=== PATIENT | female | born 1940 | race American Indian/Alaskan Native ===

== ENCOUNTER 2018-10-08 18:50 | Emergency (ER) | payer MEDICARE ==
[2018-10-08 19:24] VITALS: BP 139/66
--- NOTE | 2018-10-08 21:25 | XRay Report ---
PROCEDURE: XR ANKLE 3+V RT TECHNIQUE: Frontal, lateral, mortise views right ankle HISTORY: right ankle pain COMPARISONS: None FINDINGS: There is no evidence of fracture or subluxation. The mortise joint is maintained. There is soft tissue swelling along the lateral aspect of the ankle. IMPRESSION: 1. Soft tissue swelling without evidence of fracture or subluxation. This document is electronically signed by Michaela Gordillo MD., October 08 2018 09:23:07 PM ET
[2018-10-08] MEDS ORDERED: ASPIRIN PO ONE (21:57)
--- NOTE | 2018-10-08 22:02 | Emergency Department Report ---
HPI - General Chief Complaint: Fall Time Seen by Provider: 10/08/18 21:49 - HPI HPI: Room 3 The patient is a 77-year-old female presenting with a chief complaint of right ankle pain and chest pain. This morning at approximately 11:30 the patient states she fell down approximate 7 stairs injuring her right ankle. Patient denies loss of consciousness. When patient arrived to the ED family states the patient got out of the car stumbled backwards striking a trash can and then began complaining of left-sided chest pain. Patient denies any direct trauma to her chest. Patient admits to some shortness of breath but denies nausea/vomiting or diaphoresis. Patient describes her pain as a "hurt." The patient gives her chest pain score of 5/10. The patient states her last stress test occurred over 5 years ago and she has never had a cardiac catheterization Location: Right ankle, left chest Duration: Onset at 11:30 this morning Quality: "Hurt" Severity:5/10 Modifying factors: [see above] Context: [see above] Mode of transportation: [not driving] ED Past Medical Hx - Past Medical History Hx Diabetes: Yes Hx GERD: Yes Hx Kidney Stones: Yes Hx COPD: Yes Additional medical history: Enlarged heart, Kidney abnormality, Elevated cholesterol - Surgical History Additional Surgical History: Hysterectomy, Bladder tack x 3, Kidneystones removed by surgery - Family History Family history: no significant - Social History Smoking Status: Heavy Tobacco Smoker Substance Use Type: None - Medications Home Medications: Home Medications Medication Instructions Recorded Confirmed Last Taken Type Aspirin [Aspirin BABY CHEW TAB] 81 mg PO ONCE #100 tab.chew 09/06/14 Unknown Rx Nitroglycerin (Nf) [Nitrostat] 0.6 mg SL PRN PRN #20 tablet 09/06/14 Unknown Rx Omeprazole Magnesium [Prilosec Otc] 20 mg PO QDAY #20 tablet. 09/06/14 Unknown Rx ED Review of Systems ROS: Stated complaint: FALL/R LEG AND ANKLE PAIN Other details as noted in HPI Constitutional: denies: diaphoresis Eyes: denies: eye pain ENT: denies: throat pain Respiratory: shortness of breath Cardiovascular: chest pain Endocrine: no symptoms reported Gastrointestinal: denies: nausea, vomiting Genitourinary: denies: dysuria Musculoskeletal: arthralgia, myalgia Neurological: denies: headache Physical Exam - Physical Exam Vital Signs: Vital Signs 10/08/18 19:13 Temperature 97.5 F L Pulse Rate 67 Respiratory 18 Rate Blood Pressure 139/66 O2 Sat by Pulse 95 Oximetry Physical Exam: GENERAL: The patient is well-developed well-nourished male lying on stretcher not appearing to be in acute distress. [] HEENT: Normocephalic. Atraumatic. Extraocular motions are intact. Patient has moist mucous membranes. NECK: Supple. Trachea midline CHEST/LUNGS: Clear to auscultation. There is no respiratory distress noted. HEART/CARDIOVASCULAR: Regular. There is no tachycardia. There is no gallop rub or murmur. 2+ right DP ABDOMEN: Abdomen is soft, nontender. Patient has normal bowel sounds. There is no abdominal distention. SKIN: There is no rash. There is mild right lateral malleolus edema. There is no diaphoresis. NEURO: The patient is awake, alert, and oriented. The patient is cooperative. Normal sensation to the right foot. The patient has normal speech. Patient able to wiggle toes on the right foot. MUSCULOSKELETAL: There is tenderness and swelling to the right lateral malleolus ED Course Vital Signs 10/08/18 19:13 Temperature 97.5 F L Pulse Rate 67 Respiratory 18 Rate Blood Pressure 139/66 O2 Sat by Pulse 95 Oximetry ED Medical Decision Making - EKG Data -: EKG Interpreted by Me EKG shows normal: sinus rhythm Rate: normal - EKG Data When compared to previous EKG there are: previous EKG unavailable Interpretation: other (no ischemic changes seen) - Radiology Data Radiology results: report reviewed (right ankle x-ray), image reviewed (right ankle x-ray) interpreted by me: Right ankle x-ray-no acute fracture [facility] [address] [place] [address] XRay Report Signed Patient: SAL GRIFFITH MR#: [id number] : 1940 Acct:[id number] Age/Sex: 77 / F ADM Date: 10/08/18 Loc: ED Attending Dr: Ordering Physician: ED MD KYLIE Date of Service: 10/08/18 Procedure(s): XR ankle 3+V RT Accession Number(s): [id number] cc: ED MD KYLIE Fluoro Time In Minutes: PROCEDURE: XR ANKLE 3+V RT TECHNIQUE: Frontal, lateral, mortise views right ankle HISTORY: right ankle pain COMPARISONS: None FINDINGS: There is no evidence of fracture or subluxation. The mortise joint is maintained. There is soft tissue swelling along the lateral aspect of the ankle. IMPRESSION: 1. Soft tissue swelling without evidence of fracture or subluxation. This document is electronically signed by Tom Gordillo MD., October 08 2018 09:23:07 PM ET Transcribed By: ED Dictated By: TOM GORDILLO MD Electronically Authenticated By: TOM GORDILLO MD Signed Date/Time: 10/08/182124 DD/ 13 TD/TT: 10/08/182013 - Medical Decision Making I explained to the patient and the 2 family members present in the room I concern for her chest pain. I explained how one set of normal labs as well as unremarkable EKG does not rule out acute coronary syndrome. I urged the patient and the family to remain and be admitted to the hospital for observation. Patient verbalized understanding of increased morbidity and/or mortality should she leave the hospital AGAINST MEDICAL ADVICE still states she does not wish to be admitted to the hospital. - Differential Diagnosis ankle sprain, ankle fracture, ACS, anxiety, pericarditis, GERD Critical care attestation.: If time is entered above; I have spent that time in minutes in the direct care of this critically ill patient, excluding procedure time. ED Disposition Clinical Impression: Right ankle sprain, Acute right ankle pain, Chest pain Disposition: -07 LEFT AGAINST MED ADVICE Is pt being admited?: No Does the pt Need Aspirin: Yes Condition: Undetermined Instructions: Chest Pain (ED) Time of Disposition: 22:08 (patient leaving AMA)
[2018-10-08] MEDS ORDERED: TYLENOL ONE (22:09)
[2018-10-09] MEDS ORDERED: TYLENOL PO ONE (00:22)
== END 2018-10-08 23:00 | disposition left against medical advice (07) ==
LOC: ED 18:50
DX: S93.402A Sprain of unspecified ligament of left ankle, initial encounter (principal); R07.89 Other chest pain; W01.198A Fall on same level from slipping, tripping and stumbling with subsequent striking against other object, initial encounter; Y93.89 Activity, other specified; Y92.89 Other specified places as the place of occurrence of the external cause; Y99.8 Other external cause status
CPT/HCPCS: 93005; 93010

== ENCOUNTER 2021-07-26 18:34 | Emergency (ER) | payer MEDICARE ==
[2021-07-26] MEDS ORDERED: MORPHINE 4 MG/1 ML INJ IM ONE (18:52)
--- NOTE | 2021-07-26 18:53 | Event Note ---
ED Screening Note Date of service: 07/26/21 Time: 18:49 ED Screening Note: 80-year-old -[place] female presents to the emergency room for severe back pain that started after she had fallen today down a few steps. Patient denies hitting her head no loss of consciousness. Patient reports her pain is unbearable. She denies any urinary continent or bowel incontinent. States is very painful to stand or walk. This initial assessment/diagnostic orders/clinical plan/treatment(s) is/are subject to change based on patients health status, clinical progression and re- assessment by fellow clinical providers in the ED. Further treatment and workup at subsequent clinical providers discretion. Patient/guardian urged not to elope from the ED as their condition may be serious if not clinically assessed and managed. Initial orders include: Lumbar sacral x-ray ordered morphine 3 mg IM has been ordered.
--- NOTE | 2021-07-26 20:57 | Cat Scan Report ---
CT LUMBAR SPINE: 07/26/2021 INDICATION / CLINICAL INFORMATION: fall. COMPARISON: None available. FINDINGS: CT images of the lumbar spine were obtained. Images are evaluated in the axial, coronal, and sagittal planes. The bones are diffusely osteopenic. There is mild compression deformity involving the upper endplate of the L2 vertebral body. There is been approximately 10-20% loss of vertebral body height at the L2 level. Upper endplate irregularity is present with some increased density, and the pattern would be consistent with recent or acute comp ression deformity. There is no evidence of retropulsion. There is no evidence of canal narrowing. Remaining lumbar vertebral body heights are well preserved. PARASPINAL STRUCTURES: Unremarkable. Atherosclerotic vascular calcifications are noted. IMPRESSION: Mild compression deformity of L2. Prominent diffuse osteopenia. All CT scans at this location are performed using dose reduction to ALARA by means of automated expos ure control. Signer Name: Silvino Singleton MD Signed: 07/26/2021 8:53 PM Workstation Name: [id number]
--- NOTE | 2021-07-26 21:13 | Emergency Department Report ---
ED Back Pain/Injury HPI - General Chief Complaint: Fall Stated Complaint: FALL Time Seen by Provider: 07/26/21 19:12 Source: patient Limitations: No Limitations - History of Present Illness Initial Comments: atient found in room on stomach, moaning in pain. Patient assisted to flat position on back with two person assist. Placed on continuous monitoring. Vital signs assessed. Morphine IM given via RN. Patient advised of need to lie flat until CT clears spine. Patient verbalized understanding. -: Sudden, hour(s) Similar Symptoms Previously: No Severity scale (0 -10): 5 Quality: aching Consistency: constant Improves With: immobilization - Related Data Previous Rx's Medication Instructions Recorded Last Taken Type Aspirin [Aspirin BABY CHEW TAB] 81 mg PO ONCE #100 tab.chew 09/06/14 Unknown Rx Nitroglycerin (Nf) [Nitrostat] 0.6 mg SL PRN PRN #20 tablet 09/06/14 Unknown Rx Omeprazole Magnesium [Prilosec Otc] 20 mg PO QDAY #20 tablet. 09/06/14 Unknown Rx Ibuprofen [Motrin 800 MG tab] 800 mg PO Q8HR PRN #20 tablet 10/08/18 Unknown Rx traMADoL [Ultram] 50 mg PO Q6HR PRN #14 tablet 10/08/18 Unknown Rx Allergies Allergy/AdvReac Type Severity Reaction Status Date / Time Penicillins Allergy Hives Verified 09/06/14 17:58 ED Review of Systems ROS: Stated complaint: FALL Other details as noted in HPI Constitutional: denies: chills, fever Eyes: denies: eye pain, eye discharge, vision change ENT: denies: ear pain, throat pain Respiratory: denies: cough, shortness of breath, wheezing Cardiovascular: denies: chest pain, palpitations Endocrine: no symptoms reported Gastrointestinal: denies: abdominal pain, nausea, diarrhea Genitourinary: denies: urgency, dysuria, discharge Musculoskeletal: denies: back pain, joint swelling, arthralgia Skin: denies: rash, lesions Neurological: denies: headache, weakness, paresthesias Psychiatric: denies: anxiety, depression Hematological/Lymphatic: denies: easy bleeding, easy bruising ED Past Medical Hx - Past Medical History Previous Medical History?: Yes Hx Diabetes: Yes Hx GERD: Yes Hx Kidney Stones: Yes Hx COPD: Yes Additional medical history: Enlarged heart, Kidney abnormality, Elevated cholesterol - Surgical History Past Surgical History?: Yes Additional Surgical History: Hysterectomy, Bladder tack x 3, Kidneystones removed by surgery - Social History Smoking Status: Heavy Tobacco Smoker Substance Use Type: None - Medications Home Medications: Home Medications Medication Instructions Recorded Confirmed Last Taken Type Aspirin [Aspirin BABY CHEW TAB] 81 mg PO ONCE #100 tab.chew 09/06/14 Unknown Rx Nitroglycerin (Nf) [Nitrostat] 0.6 mg SL PRN PRN #20 tablet 09/06/14 Unknown Rx Omeprazole Magnesium [Prilosec Otc] 20 mg PO QDAY #20 tablet.dr 09/06/14 Unknown Rx Ibuprofen [Motrin 800 MG tab] 800 mg PO Q8HR PRN #20 tablet 10/08/18 Unknown Rx traMADoL [Ultram] 50 mg PO Q6HR PRN #14 tablet 10/08/18 Unknown Rx ED Physical Exam - General Limitations: No Limitations General appearance: alert - Head Head exam: Present: atraumatic, normocephalic - Eye Eye exam: Present: normal appearance - ENT ENT exam: Present: mucous membranes moist - Neck Neck exam: Present: normal inspection - Respiratory Respiratory exam: Present: normal lung sounds bilaterally. Absent: respiratory distress - Cardiovascular Cardiovascular Exam: Present: regular rate, normal rhythm. Absent: systolic murmur, diastolic murmur, rubs, gallop - GI/Abdominal GI/Abdominal exam: Present: soft, normal bowel sounds - Extremities Exam Extremities exam: Present: normal inspection - Back Exam Back exam: Present: normal inspection, tenderness, vertebral tenderness - Neurological Exam Neurological exam: Present: alert, oriented X3 - Psychiatric Psychiatric exam: Present: normal affect, normal mood - Skin Skin exam: Present: warm, dry, intact, normal color. Absent: rash ED Course Vital Signs 07/26/21 07/26/21 07/26/21 18:38 19:53 19:56 Temperature 98.9 F Pulse Rate 73 71 Respiratory 16 21 Rate Blood Pressure Blood Pressure 136/92 150/84 [Left] O2 Sat by Pulse 95 96 Oximetry 07/26/21 07/26/21 07/26/21 20:00 20:15 20:31 Temperature Pulse Rate 74 67 70 Respiratory 24 20 25 H Rate Blood Pressure 136/76 136/76 144/75 Blood Pressure [Left] O2 Sat by Pulse 96 93 93 Oximetry 07/26/21 20:45 Temperature Pulse Rate 73 Respiratory 19 Rate Blood Pressure 145/71 Blood Pressure [Left] O2 Sat by Pulse 92 Oximetry Critical care attestation.: If time is entered above; I have spent that time in minutes in the direct care of this critically ill patient, excluding procedure time. ED Disposition Clinical Impression: L2 vertebral fracture Disposition: HOME / SELF CARE / HOMELESS Is pt being admited?: No Does the pt Need Aspirin: No Condition: Stable Instructions: Lumbar Spine Fracture Additional Instructions: rest and back support Referrals: MANISHA JONES MD [Staff Physician] - 3-5 Days
[2021-07-26 21:51] VITALS: BP 155/74
== END 2021-07-26 21:51 | disposition home or self-care (01) ==
LOC: ED 18:34
DX: S32.029A Unspecified fracture of second lumbar vertebra, initial encounter for closed fracture (principal); X58.XXXA Exposure to other specified factors, initial encounter; Y93.89 Activity, other specified; Y92.89 Other specified places as the place of occurrence of the external cause; Y99.8 Other external cause status; E11.9 Type 2 diabetes mellitus without complications; K21.9 Gastro-esophageal reflux disease without esophagitis; J44.9 Chronic obstructive pulmonary disease, unspecified; Z87.442 Personal history of urinary calculi; Z88.0 Allergy status to penicillin; Z79.899 Other long term (current) drug therapy
CPT/HCPCS: 72131; 96372; 99283; J2270

== ENCOUNTER 2022-01-04 04:29 | Emergency (ER) | payer MEDICARE ==
[2022-01-04 04:35] VITALS: BP 112/56
[2022-01-04] MEDS ORDERED: HYDROcodone/ACETAMINOPHEN 5-325 MG TAB PO ONE (05:10)
[2022-01-04] MEDS ORDERED: ONDANSETRON 4 MG ODT TAB PO ONE (05:10)
--- NOTE | 2022-01-04 05:15 | XRay Report ---
RIGHT HIP 3 VIEW(S) INDICATION / CLINICAL INFORMATION: fall COMPARISON: None available. FINDINGS: BONES / JOINT(S): No acute fracture or subluxation. No significant arthritis. SOFT TISSUES: No significant abnormality. ADDITIONAL FINDINGS: None. IMPRESSION: 1. No acute pathology. Signer Name: Jackson Tripathi II, MD Signed: 01/04/2022 5:10 AM Workstation Name: [id number]
--- NOTE | 2022-01-04 07:44 | Emergency Department Report ---
ED Fall HPI - General Chief Complaint: Fall Stated Complaint: FALL, RT SIDE HURTING Time Seen by Provider: 01/04/22 06:49 Source: patient Mode of arrival: Ambulatory Limitations: No Limitations - History of Present Illness Initial Comments: 81-year-old female with multiple chronic past medical conditions presents to the hospital complaining of right flank pain after a fall approximately 3:30 PM yesterday. At her baseline patient intermittently walks with a walker. She was watching a car when she fell landing on her right side. Denies head injury or LOC. Patient has had right flank pain since fall with difficulty ambulating and increased walker dependence. No complaints of shortness of breath, chest pain leg weakness, numbness, or urinary incontinence. Patient was seen here in July for a fall and diagnosed with a L2 fracture and was subsequently required surgery in October performed in [place] - Related Data Previous Rx's Medication Instructions Recorded Last Taken Type Aspirin [Aspirin BABY CHEW TAB] 81 mg PO ONCE #100 tab.chew 09/06/14 Unknown Rx Nitroglycerin (Nf) [Nitrostat] 0.6 mg SL PRN PRN #20 tablet 09/06/14 Unknown Rx Omeprazole Magnesium [Prilosec Otc] 20 mg PO QDAY #20 tablet. 09/06/14 Unknown Rx Ibuprofen [Motrin 800 MG tab] 800 mg PO Q8HR PRN #20 tablet 10/08/18 Unknown Rx traMADoL [Ultram] 50 mg PO Q6HR PRN #14 tablet 10/08/18 Unknown Rx Back Brace [Ultra Support] 1 each MC 1XW #1 each 07/26/21 Unknown Rx HYDROcodone/ACETAMINOPHEN 1 each PO TID PRN #14 tablet 07/26/21 Unknown Rx [Hydrocodone-Acetamin 5-300 mg] HYDROcodone/APAP 5-325 [[place] 1 each PO Q6HR PRN #14 tablet 01/04/22 Unknown Rx 5-325 mg TAB] Allergies Allergy/AdvReac Type Severity Reaction Status Date / Time Penicillins Allergy Hives Verified 09/06/14 17:58 ED Review of Systems ROS: Stated complaint: FALL, RT SIDE HURTING Other details as noted in HPI Comment: All other systems reviewed and negative ED Past Medical Hx - Past Medical History Previous Medical History?: Yes Hx Heart Attack/AMI: Yes (2020) Hx Diabetes: Yes Hx GERD: Yes Hx Kidney Stones: Yes Hx COPD: Yes Additional medical history: Enlarged heart, Kidney abnormality, Elevated cholesterol - Surgical History Past Surgical History?: Yes Additional Surgical History: Hysterectomy, Bladder tack x 3, Kidneystones re moved by surgery. kyphoplastic sx on L2 - Social History Smoking Status: Heavy Tobacco Smoker Substance Use Type: None - Medications Home Medications: Home Medications Medication Instructions Recorded Confirmed Last Taken Type Aspirin [Aspirin BABY CHEW TAB] 81 mg PO ONCE #100 tab.chew 09/06/14 Unknown Rx Nitroglycerin (Nf) [Nitrostat] 0.6 mg SL PRN PRN #20 tablet 09/06/14 Unknown Rx Omeprazole Magnesium [Prilosec Otc] 20 mg PO QDAY #20 tablet. 09/06/14 Unknown Rx Ibuprofen [Motrin 800 MG tab] 800 mg PO Q8HR PRN #20 tablet 10/08/18 Unknown Rx traMADoL [Ultram] 50 mg PO Q6HR PRN #14 tablet 10/08/18 Unknown Rx Back Brace [Ultra Support] 1 each MC 1XW #1 each 07/26/21 Unknown Rx HYDROcodone/ACETAMINOPHEN 1 each PO TID PRN #14 tablet 07/26/21 Unknown Rx [Hydrocodone-Acetamin 5-300 mg] HYDROcodone/APAP 5-325 [[place] 1 each PO Q6HR PRN #14 tablet 01/04/22 Unknown Rx 5-325 mg TAB] ED Physical Exam - General Limitations: No Limitations - Other Other exam information: General: No acute distress Head: Atraumatic Eyes: normal appearance ENT: Moist mucous membranes Neck: Normal appearance, no midline tenderness Chest: Clear to auscultation bilaterally CV: Regular rate and rhythm Abdomen: Soft, normal bowel sounds, nontender, nondistended, no rebound or guarding Back: Normal inspection, no midline tenderness, no ecchymosis, right flank pain at the base of the 12th rib down to the pelvis. No hip tenderness Extremity: Normal inspection, full range of motion Neuro: Alert O x 3, no facial asymmetry, speech clear, no gross motor sensory deficit Psych: Appropriate behavior Skin: No rash ED Course Vital Signs 01/04/22 04:33 Temperature 97.9 F Pulse Rate 72 Respiratory 18 Rate Blood Pressure 112/56 O2 Sat by Pulse 98 Oximetry - Reevaluation(s) Reevaluation #1: 01/04/22 07:43 Patient received [place] prior to my evaluation with some improvement in symptoms ED Medical Decision Making - Radiology Data Radiology results: report reviewed RIGHT HIP 3 VIEW(S) INDICATION / CLINICAL INFORMATION: fall COMPARISON: None available. FINDINGS: BONES / JOINT(S): No acute fracture or subluxation. No significant arthritis. SOFT TISSUES: No significant abnormality. ADDITIONAL FINDINGS: None. IMPRESSION: 1. No acute pathology. CT ABDOMEN AND PELVIS WITHOUT CONTRAST INDICATION / CLINICAL INFORMATION: Right sided flank pain after fall, Hx of Lumbar fracture. TECHNIQUE: Axial CT images were obtained through the abdomen and pelvis without IV contrast. All CT scans at this location are performed using CT dose reduction for ALARA by means of automated exposure control. COMPARISON: CT lumbar spine dated 07/26/21 FINDINGS: LOWER CHEST: No significant abnormality. LIVER: Several small simple cysts. GALLBLADDER: No significant abnormality. BILE DUCTS: No significant abnormality. PANCREAS: No significant abnormality. SPLEEN: No significant abnormality. ADRENALS: No significant abnormality. RIGHT KIDNEY / URETER: No significant abnormality. LEFT KIDNEY / URETER: Small simple cyst. No significant abnormality. STOMACH / SMALL BOWEL: No significant abnormality. COLON: No significant abnormality. APPENDIX: No significant abnormality. PERITONEUM: No free fluid. No free air. No fluid collection. LYMPH NODES: No significant adenopathy. AORTA / ARTERIES: Moderate atherosclerotic calcification without acute abnormality. IVC / VEINS: No significant abnormality. URINARY BLADDER: No significant abnormality. REPRODUCTIVE ORGANS: Uterus is absent. No significant adnexal abnormality. ADDITIONAL FINDINGS: None. SKELETAL SYSTEM: Interval mild inferior endplate compression deformity of T12. Old L2 compression fracture with interval vertebroplasty. IMPRESSION: 1. No acute process in the abdomen or pelvis. 2. Interval mild inferior endplate compression deformity of T12. - Medical Decision Making 81-year female status post fall yesterday. Pain improved with [place] in the ED. X-ray and CT findings significant only for a mild T12 endplate compression deformity. Patient be discharged with meds, CT report, and outpatient orthopedic follow-up encouraged - Differential Diagnosis Fracture, contusion, sprain Critical Care Time: No Critical care attestation.: If time is entered above; I have spent that time in minutes in the direct care of this critically ill patient, excluding procedure time. ED Disposition Clinical Impression: Fall, T12 vertebral fracture, Contusion, flank Disposition: 01 HOME / SELF CARE / HOMELESS Is pt being admited?: No Does the pt Need Aspirin: No Condition: Stable Instructions: Contusion, [id number], Thoracic Spine Fracture Additional Instructions: Take the medication as prescribed. Follow-up with the orthopedic doctor provided with orthopedic doctor of your choice. Return if symptoms worsen as indicated by your discharge instructions. Prescriptions: HYDROcodone/APAP 5-325 [[place] 5-325 mg TAB] 1 each PO Q6HR PRN #14 tablet PRN Reason: Pain Referrals: RENEE ROMERO MD [Staff Physician] - 3-5 Days Time of Disposition: 09:32
--- NOTE | 2022-01-04 08:32 | Cat Scan Report ---
CT ABDOMEN AND PELVIS WITHOUT CONTRAST INDICATION / CLINICAL INFORMATION: Right sided flank pain after fall, Hx of Lumbar fracture. TECHNIQUE: Axial CT images were obtained through the abdomen and pelvis without IV contrast. All CT scans at this location are performed using CT dose reduction for ALARA by means of automated exposure control. COMPARISON: CT lumbar spine dated 07/26/21 FINDINGS: LOWER CHEST: No significant abnormality. LIVER: Several small simple cysts. GALLBLADDER: No significant abnormality. BILE DUCTS: No significant abnormality. PANCREAS: No significant abnormality. SPLEEN: No significant abnormality. ADRENALS: No significant abnormality. RIGHT KIDNEY / URETER: No significant abnormality. LEFT KIDNEY / URETER: Small simple cyst. No significant abnormality. STOMACH / SMALL BOWEL: No significant abnormality. COLON: No significant abnormality. APPENDIX: No significant abnormality. PERITONEUM: No free fluid. No free air. No fluid collection. LYMPH NODES: No significant adenopathy. AORTA / ARTERIES: Moderate atherosclerotic calcification without acute abnormality. IVC / VEINS: No significant abnormality. URINARY BLADDER: No significant abnormality. REPRODUCTIVE ORGANS: Uterus is absent. No significant adnexal abnormality. ADDITIONAL FINDINGS: None. SKELETAL SYSTEM: Interval mild inferior endplate compression deformity of T12. Old L2 compression fra cture with interval vertebroplasty. IMPRESSION: 1. No acute process in the abdomen or pelvis. 2. Interval mild inferior endplate compression deformity of T12. Signer Name: Srikanth Quezada MD Signed: 01/04/2022 8:27 AM Workstation Name: [id number]
== END 2022-01-04 09:50 | disposition home or self-care (01) ==
LOC: ED 04:29
DX: S32.009A Unspecified fracture of unspecified lumbar vertebra, initial encounter for closed fracture (principal); S30.1XXA Contusion of abdominal wall, initial encounter; E11.9 Type 2 diabetes mellitus without complications; K21.9 Gastro-esophageal reflux disease without esophagitis; Z87.442 Personal history of urinary calculi; J44.9 Chronic obstructive pulmonary disease, unspecified; E78.00 Pure hypercholesterolemia, unspecified; I51.7 Cardiomegaly; Z90.710 Acquired absence of both cervix and uterus; Z98.890 Other specified postprocedural states; F17.290 Nicotine dependence, other tobacco product, uncomplicated; Z88.0 Allergy status to penicillin; W19.XXXA Unspecified fall, initial encounter; Y93.89 Activity, other specified; Y92.89 Other specified places as the place of occurrence of the external cause; Y99.8 Other external cause status
CPT/HCPCS: 74176; 99284; J3490; Q0162